=== PATIENT | male | born 1935 | race Caucasian/White ===

== ENCOUNTER → 2017-08-13 | Outpatient (CLI) | payer MEDICARE, OTHER ==
[~2017-08-13] MED LIST: ACET500T68 PO; ALL300 PO; ALLO-119 PO; ASP325 PO; ASPI-757 PO; CA C1TAB9 PO; CALC-1046; CALC-661 PO; CALC-748 PO; CALCIUM PO; CHOL10005 PO; CYAN1000 IJ; CYAN50LO2 INJ; ERGO400T9 PO; IPRN ENA; KETO1DRO3 OP; MAGNESIUM; MAGNESIUM PO; POLY17PO25 PO; PRE200PT PO; PREG300C14 PO; PSYL3.4P2 PO; TADA5TAB7 PO; VITA-200 PO; [UNRECOGNIZED DRUG - CODE] PO; [UNRECOGNIZED DRUG - OTHER]
[2017-08-13 16:47] LABS: PLATELET COUNT, AUTOMATED 134 K/uL (150-450)
== END ==
LOC: LAB 16:20
PROVIDERS: ATTEND Family Medicine
DX: E53.8 Deficiency of other specified B group vitamins (principal); G20 Parkinson's disease; M10.9 Gout, unspecified
CPT/HCPCS: 36415; 82040; 82247; 82310; 82374; 82435; 82565; 82607; 82947; 84075; 84132; 84155; 84295; 84450; 84460; 84520; 84550; 85025

== ENCOUNTER → 2018-07-30 | Outpatient (CLI) | payer MEDICARE, OTHER ==
[~2018-07-30] MED LIST changes: +CYAN1TAB58 PO; +DICL100G39 TOP; +FLU180SY11 IM; +PNEI IJ; +PREG100C44 PO
[2018-07-30 17:01] LABS: PLATELET COUNT, AUTOMATED 186 K/uL (150-450)
== END ==
LOC: LAB 15:58
PROVIDERS: ATTEND Family Medicine
DX: G20 Parkinson's disease (principal); E53.9 Vitamin B deficiency, unspecified; R53.83 Other fatigue; Z79.899 Other long term (current) drug therapy
CPT/HCPCS: 82040; 82247; 82306; 82310; 82374; 82435; 82565; 82607; 82746; 82947; 83090; 83921; 84075; 84132; 84155; 84295; 84450; 84460; 84520; 85025

== ENCOUNTER → 2018-11-26 | Outpatient (CLI) | payer MEDICARE, OTHER ==
--- NOTE | 2018-11-26 14:17 | EKG ---
FACILITY: [facility] PATIENT NAME: BOWEN LOMAX : [id number] MR: [id number]: [id number] EXAM DATE: ORDERING PHYSICIAN: MARY WHITAKER TECHNOLOGIST: JARRETT Test Reason : TACHYCARDIA Blood Pressure : / mmHG Vent. Rate : 058 BPM Atrial Rate : 058 BPM P-R Int : 192 ms QRS Dur : 084 ms QT Int : 424 ms P-R-T Axes : 058 -34 -14 degrees QTc Int : 416 ms Sinus bradycardia with premature supraventricular complexes Left axis deviation Low voltage QRS Abnormal ECG No previous ECGs available Confirmed by SNEHA TALBOT ([id number]) on 11/27/2018 3:33:53 PM Referred By: JULIANNE Confirmed By:SNEHA TALBOT
== END ==
LOC: LAB 13:22
PROVIDERS: ATTEND Family Medicine
DX: Z02.9 Encounter for administrative examinations, unspecified (principal)